=== PATIENT | male | born 1975 | race Caucasian/White ===

== ENCOUNTER 2016-05-24 04:35 | Emergency (ER) | payer OTHER ==
--- NOTE | 2016-05-24 04:44 | ED ---
General Adult HPI - General Source: patient, RN notes reviewed, old records reviewed Mode of arrival: ambulatory Limitations: no limitations <Hero Ledezma - Last Filed: 05/24/16 04:44> <William Greenberg - Last Filed: 05/24/16 13:25> - General Chief complaint: Psychiatric Symptoms Stated complaint: mental health Time Seen by Provider: 05/24/16 04:44 - History of Present Illness Initial comments: This is a 40-year-old male ER for psychiatric evaluation, patient states he feels suicidal (Hero Ledezma) - Related Data Home Medications Medication Instructions Recorded Confirmed No Known Home Medications [No 05/24/16 05/24/16 Known Home Medications] Allergies Allergy/AdvReac Type Severity Reaction Status Date / Time No Known Allergies Allergy Verified 05/24/16 04:42 Review of Systems ROS Other: All systems not noted in ROS Statement are negative. <Hero Ledezma - Last Filed: 05/24/16 04:44> ROS Other: All systems not noted in ROS Statement are negative. <William Greenberg - Last Filed: 05/24/16 13:25> ROS Statement: Those systems with pertinent positive or pertinent negative responses have been documented in the HPI. Past Medical History Past Medical History: No Reported History History of Any Multi-Drug Resistant Organisms: None Reported Past Surgical History: No Surgical Hx Reported Past Psychological History: No Psychological Hx Reported Smoking Status: Current every day smoker Past Alcohol Use History: Daily Past Drug Use History: Marijuana <Hero eLdezma - Last Filed: 05/24/16 04:44> General Exam Limitations: no limitations General appearance: alert, in no apparent distress Head exam: Present: atraumatic, normocephalic, normal inspection Eye exam: Present: normal appearance, PERRL, EOMI. Absent: scleral icterus, conjunctival injection, periorbital swelling ENT exam: Present: normal exam, mucous membranes moist Neck exam: Present: normal inspection. Absent: tenderness, meningismus, lymphadenopathy Respiratory exam: Present: normal lung sounds bilaterally. Absent: respiratory distress, wheezes, rales, rhonchi, stridor Cardiovascular Exam: Present: regular rate, normal rhythm, normal heart sounds. Absent: systolic murmur, diastolic murmur, rubs, gallop, clicks GI/Abdominal exam: Present: soft, normal bowel sounds. Absent: distended, tenderness, guarding, rebound, rigid Extremities exam: Present: normal inspection, full ROM, normal capillary refill. Absent: tenderness, pedal edema, joint swelling, calf tenderness Back exam: Present: normal inspection Neurological exam: Present: alert, oriented X3, CN II-XII intact Psychiatric exam: Present: normal affect, normal mood Skin exam: Present: warm, dry, intact, normal color. Absent: rash <Hero Ledezma - Last Filed: 05/24/16 04:44> Course <Hero Ledezma - Last Filed: 05/24/16 04:44> <William Greenberg - Last Filed: 05/24/16 13:25> Vital Signs 05/24/16 05/24/16 04:38 11:25 Temperature 97.6 F 97.7 F Pulse Rate 86 65 Respiratory 18 18 Rate Blood Pressure 153/95 140/84 O2 Sat by Pulse 94 L 96 Oximetry - Reevaluation(s) Reevaluation #1: 05/24/16 04:44 Patient's medically clear for psychiatric evaluation (Hero Ledezma) Medical Decision Making <Hero Ledezma - Last Filed: 05/24/16 04:44> <William Greenberg - Last Filed: 05/24/16 13:25> - Medical Decision Making This patient's a 40-year-old man I received as a sign out. The patient is now sober and he is denying suicidality. He contracts for safety. He attributes the earlier statements to being intoxicated. (William Greenberg) - Lab Data Lab Results 05/24/16 Range/Units 07:55 Urine Opiates Screen Not Detected (NotDetected) Ur Oxycodone Screen Not Detected (NotDetected) Urine Methadone Screen Not Detected (NotDetected) Ur Propoxyphene Screen Not Detected (NotDetected) Ur Barbiturates Screen Not Detected (NotDetected) U Tricyclic Antidepress Not Detected (NotDetected) Ur Phencyclidine Scrn Not Detected (NotDetected) Ur Amphetamines Screen Not Detected (NotDetected) U Methamphetamines Scrn Not Detected (NotDetected) U Benzodiazepines Scrn Not Detected (NotDetected) Urine Cocaine Screen Not Detected (NotDetected) U Marijuana (THC) Screen Detected H (NotDetected) Disposition <Hero Ledezma - Last Filed: 05/24/16 04:44> <William Greenberg - Last Filed: 05/24/16 13:25> Clinical Impression: Alcohol intoxication Disposition: HOME SELF-CARE Condition: Fair Instructions: Alcohol Intoxication (ED) Additional Instructions: Avoid using alcohol. As we discussed, if the symptoms started to return, come to the emergency department or call 911. Follow up with the resources as an outpatient. Referrals: None,Stated [Primary Care Provider] - 1-2 days
[2016-05-24 13:37] VITALS: BP 132/78; PULSE 86; RESP 20; TEMP 97.4
== END 2016-05-24 13:48 | disposition home or self-care (01) ==
LOC: EC 04:35
DX: F10.129 Alcohol abuse with intoxication, unspecified (principal); R45.851 Suicidal ideations; F17.200 Nicotine dependence, unspecified, uncomplicated
CPT/HCPCS: 80306; 82075; 99284

== ENCOUNTER 2017-08-31 13:12 | Emergency (ER) | payer OTHER ==
[2017-08-31 13:18] VITALS: TEMP 98.6
--- NOTE | 2017-08-31 13:40 | ED ---
General Adult HPI - General Chief complaint: Chest Pain Stated complaint: chest pain Time Seen by Provider: 08/31/17 13:20 Source: patient Mode of arrival: wheelchair Limitations: no limitations - History of Present Illness Initial comments: This is a 42-year-old male to the ER for evaluation of chest pain, chest pain left-sided chest pain back pain abdominal pain nausea. No vomiting, no significant modifiers signifying factors for pain. No fevers or cough no congestion or travel history no known sick contacts. Patient has no prior history of sore pain, symptoms are going on for a few weeks now but worse this week into today. - Related Data Home Medications Medication Instructions Recorded Confirmed Aspirin EC [Ecotrin Low Dose] 324 mg PO ONCE PRN 08/31/17 08/31/17 Allergies Allergy/AdvReac Type Severity Reaction Status Date / Time No Known Allergies Allergy Verified 08/31/17 13:53 Review of Systems ROS Statement: Those systems with pertinent positive or pertinent negative responses have been documented in the HPI. ROS Other: All systems not noted in ROS Statement are negative. Past Medical History Past Medical History: No Reported History History of Any Multi-Drug Resistant Organisms: None Reported Past Surgical History: No Surgical Hx Reported Past Psychological History: No Psychological Hx Reported Smoking Status: Current every day smoker Past Alcohol Use History: Occasional Past Drug Use History: Marijuana General Exam Limitations: no limitations General appearance: alert, in no apparent distress Head exam: Present: atraumatic, normocephalic, normal inspection Eye exam: Present: normal appearance, PERRL, EOMI. Absent: scleral icterus, conjunctival injection, periorbital swelling ENT exam: Present: normal exam, mucous membranes moist Neck exam: Present: normal inspection. Absent: tenderness, meningismus, lymphadenopathy Respiratory exam: Present: normal lung sounds bilaterally. Absent: respiratory distress, wheezes, rales, rhonchi, stridor Cardiovascular Exam: Present: regular rate, normal rhythm, normal heart sounds. Absent: systolic murmur, diastolic murmur, rubs, gallop, clicks GI/Abdominal exam: Present: soft, normal bowel sounds. Absent: distended, tenderness, guarding, rebound, rigid Extremities exam: Present: normal inspection, full ROM, normal capillary refill. Absent: tenderness, pedal edema, joint swelling, calf tenderness Back exam: Present: normal inspection Neurological exam: Present: alert, oriented X3, CN II-XII intact Psychiatric exam: Present: normal affect, normal mood Skin exam: Present: warm, dry, intact, normal color. Absent: rash Course Vital Signs 08/31/17 08/31/17 08/31/17 13:16 15:52 18:01 Temperature 98.6 F Pulse Rate 102 H 62 60 Respiratory 18 18 16 Rate Blood Pressure 131/96 133/84 132/64 O2 Sat by Pulse 97 98 96 Oximetry - Reevaluation(s) Reevaluation #1: 08/31/17 18:03 Patient's pain is well-controlled currently EKG Findings - EKG Comments: EKG Findings:: EKG shows normal sinus rhythm rate of 70, WV 154, QRS 160, QTc 412 Medical Decision Making - Medical Decision Making 42 male the ER with nonspecific chest pain. Patient be discharged home to follow-up with primary care regarding further causes of chest pain - Lab Data Result diagrams: 08/31/17 13:45 08/31/17 13:45 Lab Results 08/31/17 08/31/17 08/31/17 Range/Units 13:45 13:45 13:45 WBC 4.8 (3.8-10.6) k/uL RBC 4.83 (4.30-5.90) m/uL Hgb 15.7 (13.0-17.5) gm/dL Hct 46.4 (39.0-53.0) % MCV 96.1 (80.0-100.0) fL MCH 32.6 (25.0-35.0) pg MCHC 33.9 (31.0-37.0) g/dL RDW 13.1 (11.5-15.5) % Plt Count 156 (150-450) k/uL Neutrophils % 70 % Lymphocytes % 19 % Monocytes % 6 % Eosinophils % 3 % Basophils % 0 % Neutrophils # 3.4 (1.3-7.7) k/uL Lymphocytes # 0.9 L (1.0-4.8) k/uL Monocytes # 0.3 (0-1.0) k/uL Eosinophils # 0.1 (0-0.7) k/uL Basophils # 0.0 (0-0.2) k/uL PT (9.0-12.0) sec INR (<1.2) APTT (22.0-30.0) sec D-Dimer (<0.60) mg/L FEU Sodium 143 (137-145) mmol/L Potassium 4.3 (3.5-5.1) mmol/L Chloride 106 (98-107) mmol/L Carbon Dioxide 23 (22-30) mmol/L Anion Gap 14 mmol/L BUN 14 (9-20) mg/dL Creatinine 0.70 (0.66-1.25) mg/dL Est GFR (CKD-EPI)AfAm >90 (>60 ml/min/1.73 sqM) Est GFR (CKD-EPI)NonAf >90 (>60 ml/min/1.73 sqM) Glucose 91 (74-99) mg/dL Calcium 9.3 (8.4-10.2) mg/dL Magnesium 1.8 (1.6-2.3) mg/dL Total Bilirubin 0.2 (0.2-1.3) mg/dL AST 46 (17-59) U/L ALT 42 (21-72) U/L Alkaline Phosphatase 72 (38-126) U/L Total Creatine Kinase 107 (55-170) U/L CK-MB (CK-2) 0.8 (0.0-2.4) ng/mL CK-MB (CK-2) Rel Index 0.7 Troponin I <0.012 (0.000-0.034) ng/mL Total Protein 6.9 (6.3-8.2) g/dL Albumin 4.3 (3.5-5.0) g/dL Lipase 322 H (23-300) U/L 08/31/17 08/31/17 Range/Units 13:45 16:56 WBC (3.8-10.6) k/uL RBC (4.30-5.90) m/uL Hgb (13.0-17.5) gm/dL Hct (39.0-53.0) % MCV (80.0-100.0) fL MCH (25.0-35.0) pg MCHC (31.0-37.0) g/dL RDW (11.5-15.5) % Plt Count (150-450) k/uL Neutrophils % % Lymphocytes % % Monocytes % % Eosinophils % % Basophils % % Neutrophils # (1.3-7.7) k/uL Lymphocytes # (1.0-4.8) k/uL Monocytes # (0-1.0) k/uL Eosinophils # (0-0.7) k/uL Basophils # (0-0.2) k/uL PT 10.3 (9.0-12.0) sec INR 1.1 (<1.2) APTT 25.9 (22.0-30.0) sec D-Dimer 0.32 (<0.60) mg/L FEU Sodium (137-145) mmol/L Potassium (3.5-5.1) mmol/L Chloride (98-107) mmol/L Carbon Dioxide (22-30) mmol/L Anion Gap mmol/L BUN (9-20) mg/dL Creatinine (0.66-1.25) mg/dL Est GFR (CKD-EPI)AfAm (>60 ml/min/1.73 sqM) Est GFR (CKD-EPI)NonAf (>60 ml/min/1.73 sqM) Glucose (74-99) mg/dL Calcium (8.4-10.2) mg/dL Magnesium (1.6-2.3) mg/dL Total Bilirubin (0.2-1.3) mg/dL AST (17-59) U/L ALT (21-72) U/L Alkaline Phosphatase (38-126) U/L Total Creatine Kinase (55-170) U/L CK-MB (CK-2) (0.0-2.4) ng/mL CK-MB (CK-2) Rel Index Troponin I <0.012 (0.000-0.034) ng/mL Total Protein (6.3-8.2) g/dL Albumin (3.5-5.0) g/dL Lipase (23-300) U/L - Radiology Data Radiology results: report reviewed (CT chest abdomen pelvis negative for acute disease), image reviewed Disposition Clinical Impression: Chest pain Disposition: HOME SELF-CARE Condition: Good Instructions: Chest Pain (ED) Is patient prescribed a controlled substance at d/c from ED?: No Referrals: None,Stated [Primary Care Provider] - 1-2 days
[2017-08-31 13:58] LABS: Basophils % (A) 0 %; Eosinophils # (A) 0.1 k/uL (0-0.7); Eosinophils % (A) 3 %; HCT 46.4 % (39.0-53.0); HGB 15.7 gm/dL (13.0-17.5); Lymphocytes # (A) 0.9 k/uL (1.0-4.8); Lymphocytes % (A) 19 %; MCH 32.6 pg (25.0-35.0); MCHC 33.9 g/dL (31.0-37.0); MCV 96.1 fL (80.0-100.0); Mean Platelet Volume 7.4; Monocytes # (A) 0.3 k/uL (0-1.0); Monocytes % (A) 6 %; Neutrophils # (A) 3.4 k/uL (1.3-7.7); Neutrophils % (A) 70 %; Platelet Count 156 k/uL (150-450); RBC 4.83 m/uL (4.30-5.90); RDW 13.1 % (11.5-15.5); WBC 4.8 k/uL (3.8-10.6)
--- NOTE | 2017-08-31 14:07 | XR ---
EXAMINATION TYPE: XR chest 2V DATE OF EXAM: 08/31/2017 COMPARISON: NONE HISTORY: Chest pain and SOB. TECHNIQUE: Frontal and lateral views of the chest are obtained. FINDINGS: There is no focal air space opacity, pleural effusion, or pneumothorax seen. The cardiac silhouette size is within normal limits. The osseous structures are intact. IMPRESSION: No acute cardiopulmonary process.
[2017-08-31] MEDS ORDERED: RX INFO: IV CONTRAST WAS GIVEN 1 EACH MISC MISCELLANE PRN ×2 (14:10→14:47)
[2017-08-31 14:16] LABS: D-Dimer 0.32 mg/L FEU (<0.60); INR 1.1 (<1.2); Partial Thromboplastin Time 25.9 sec (22.0-30.0); Prothrombin Time 10.3 sec (9.0-12.0)
[2017-08-31 14:18] LABS: ALT 42 U/L (21-72); AST 46 U/L (17-59); Albumin 4.3 g/dL (3.5-5.0); Alkaline Phosphatase 72 U/L (38-126); Anion Gap 14 mmol/L; Blood Urea Nitrogen 14 mg/dL (9-20); Calcium 9.3 mg/dL (8.4-10.2); Carbon Dioxide 23 mmol/L (22-30); Chloride 106 mmol/L (98-107); Glucose 91 mg/dL (74-99); Lipase 322 U/L (23-300); Magnesium 1.8 mg/dL (1.6-2.3); Potassium 4.3 mmol/L (3.5-5.1); Sodium 143 mmol/L (137-145); Total Bilirubin 0.2 mg/dL (0.2-1.3); Total Protein 6.9 g/dL (6.3-8.2)
[2017-08-31 14:19] LABS: Creatine Kinase 107 U/L (55-170)
[2017-08-31 14:30] LABS: Creatine Kinase MB 0.8 ng/mL (0.0-2.4); Troponin I <0.012 ng/mL (0.000-0.034)
--- NOTE | 2017-08-31 15:37 | CT ---
EXAMINATION TYPE: CT angio chest DATE OF EXAM: 08/31/2017 COMPARISON: NONE HISTORY: Left sided chest pain and elevated lipase. CT DLP: 204.8 mGycm. Automated Exposure Control for Dose Reduction was Utilized. CONTRAST: CTA scan of the thorax is performed with IV Contrast, patient injected with 100 mL of Isovue 370, pul monary embolism protocol. MIP Images are created on CT scanner and reviewed. FINDINGS: LUNGS: The lungs are grossly clear, there is no concerning parenchymal mass or nodule identified. T here is no pleural effusion or pneumothorax seen. The tracheobronchial tree is patent. Solitary supe rior segment right upper lobe pulmonary granuloma seen on series 7 image 69. 2 mm area of pleural thi ckening is present along the peripheral left lower lobe on image 25. MEDIASTINUM: There is slightly suboptimal enhancement of the subsegmental branches of the pulmonary a rtery, within this slight limitation there is no CT evidence for pulmonary embolism. Ascending thorac ic aorta is upper limits of normal size measuring 3.9 cm. There are no greater than 1 cm hilar or med iastinal lymph nodes. No cardiomegaly or pericardial effusion is seen. OTHER: Calcified benign splenic granulomas aren't swelling noted. Minimal bilateral retroareolar gyne comastia is seen. IMPRESSION: 1. No CT evidence of pulmonary embolus. 2. No focal consolidation, pleural effusion or pneumothorax. 3. Benign granulomatous changes of the right lower lobe and spleen.
--- NOTE | 2017-08-31 16:12 | CT ---
EXAMINATION TYPE: CT abdomen pelvis w con DATE OF EXAM: 08/31/2017 COMPARISON: NONE HISTORY: Left sided chest pain and elevated lipase. CT DLP: 1433.3 mGycm Automated exposure control for dose reduction was used. TECHNIQUE: Helical acquisition of images was performed from the lung bases through the pelvis. CONTRAST: Performed without Oral Contrast and with IV Contrast, patient injected with 100 mL of Isovue 370. FINDINGS: LUNG BASES: No significant abnormality is appreciated. LIVER/GB: Focal area of hypoattenuation is seen geographically within segment IVb of the liver near t he fissure for the falciform ligament, most commonly related to focal fatty infiltration. Gallbladder is unremarkable. PANCREAS: No CT sequela pancreatitis are seen. No peripancreatic fat stranding is identified however there is lack of intra-abdominal fat and apposition of adjacent bowel loops, slightly limiting evalua tion. No abnormal pancreatic enhancement or ductal dilatation is seen. No splenic arterial pseudoaneu rysm. No portal venous thrombus. SPLEEN: Benign splenic granulomas are present. ADRENALS: No significant abnormality is seen. KIDNEYS: Kidneys enhance symmetrically with no evidence of hydronephrosis. FREE AIR: No free air is visualized. ADENOPATHY: No greater than 1 cm short axis with nodes are seen within the abdomen or pelvis. REPRODUCTIVE ORGANS: No significant abnormality is seen URINARY BLADDER: No significant abnormality is seen. OSSEOUS STRUCTURES: Normal variant limbus vertebrae is seen at L4. BOWEL: No significant abnormality is seen. No dilation. IMPRESSION: NO CT SEQUELA PANCREATITIS, HOWEVER THERE IS LIMITATION FOR PERIPANCREATIC FAT STRANDING GIVEN POSSIB ILITY OF INTRA-ABDOMINAL FAT AND OPPOSING BOWEL LOOPS. THEREFORE MILD BURSITIS IS POSSIBLE.
[2017-08-31 18:02] VITALS: BP 132/64; PULSE 60; RESP 16
== END 2017-08-31 18:26 | disposition home or self-care (01) ==
LOC: EC 13:12
DX: R07.9 Chest pain, unspecified (principal); M54.9 Dorsalgia, unspecified; R10.9 Unspecified abdominal pain; R11.0 Nausea; F17.200 Nicotine dependence, unspecified, uncomplicated
CPT/HCPCS: 36415; 93005; 85379; 80053; 82550; 82553; 83690; 83735; 84484; 85025; 85610; 85730; 71046; 71275; 74177; 99285; Q9967